=== PATIENT | female | born 1960 | race Caucasian/White ===

== ENCOUNTER 2020-06-13 18:17 | Emergency (ER) | payer OTHER, SELFPAY ==
[~2020-06-13] VITALS: Ht 157.5 cm; Wt 45.2 kg
[2020-06-13 21:39] VITALS: BP 172/70
== END 2020-06-13 21:47 | disposition home or self-care (01) ==
LOC: M ED 18:17
DX: S61.228A Laceration with foreign body of other finger without damage to nail, initial encounter (principal); Y92.9 Unspecified place or not applicable; Y93.9 Activity, unspecified; Y99.9 Unspecified external cause status; F17.200 Nicotine dependence, unspecified, uncomplicated